=== PATIENT | female | born 1965 | race Caucasian/White ===

== ENCOUNTER 2017-09-09 11:19 | Emergency (ER) | payer SELFPAY ==
[2017-09-09 11:30] VITALS: BP 150/80
[2017-09-09] MEDS ORDERED: Ketorolac 60 MG/2 ML SDV IM ONE (12:01)
--- NOTE | 2017-09-09 12:14 | EDM.PDOC ---
ED HPI GENERAL MEDICAL PROBLEM - General Chief Complaint: Headache Stated Complaint: HEAD PAIN Time Seen by Provider: 09/09/17 11:58 Source of Information: Reports: Patient History Limitations: Reports: No Limitations - History of Present Illness INITIAL COMMENTS - FREE TEXT/NARRATIVE: 52-year-old female presents for evaluation and treatment of a headache. Reports she has been experiencing discomfort to her neck and head since Thursday. Came on gradually. She describes a sharp to shooting sensation in the occipital region of her head. She states that she's had this once in a while and she normally goes to a chiropractor and it resolves. 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 Reports that her headache was nearly resolved after using at home therapies but after going to the chiropractor this worsened her headache again. She denies any associated symptoms. No nausea, vomiting, dizziness, numbness, tingling, vision changes, neck pain, back pain or any weakness in her arms. Patient tried over-the- counter Tylenol, Motrin, Biofreeze and ice without any relief. No primary care provider. Occipital Headache Pain Score (Numeric/FACES): 6 - Related Data Allergies Allergy/AdvReac Type Severity Reaction Status Date / Time No Known Allergies Allergy Verified 09/09/17 11:30 Home Meds: Home Meds Naproxen 500 mg PO BID PRN #20 tablet 09/09/17 [Rx] Orphenadrine [Norflex] 100 mg PO BID PRN #20 tab.er 09/09/17 [Rx] Past Medical History - Past Surgical History HEENT Surgical History: Reports: Tonsillectomy Female Surgical History: Reports: Hysterectomy Social & Family History - Tobacco Use Smoking Status *Q: Former Smoker Used Tobacco, but Quit: Yes Month/Year Tobacco Last Used: 2015 - Caffeine Use Caffeine Use: Reports: Coffee - Recreational Drug Use Recreational Drug Use: No ED ROS GENERAL - Review of Systems Review Of Systems: See Below Constitutional: Denies: Weakness HEENT: Denies: Vision Change GI/Abdominal: Denies: Melena, Nausea Musculoskeletal: Denies: Neck Pain, Back Pain Neurological: Reports: Headache. Denies: Numbness, Tingling - Physical Exam Exam: See Below Exam Limited By: No Limitations General Appearance: Alert, WD/WN, No Apparent Distress Eye Exam: Bilateral Eye: Normal Inspection, PERRL Throat/Mouth: Normal Inspection, Normal Voice, No Airway Compromise Neck: Normal Inspection, Tender Lateral (left base of skull, occipital region to C2) Respiratory/Chest: No Respiratory Distress, Lungs Clear, Normal Breath Sounds Cardiovascular: Normal Peripheral Pulses, Regular Rate, Rhythm, No Murmur Neuro Exam (Abbreviated): Alert, Oriented, Normal Cognition, Normal Gait Back Exam: Normal Inspection. 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 No ischmeic changes. No LVH. No LAD. No IVCDs. QTc within normal limits. No significant change from June, EKG. Reviewed by myself and Dr. Huber. Course - Vital Signs Last Recorded V/S: Last Vital Signs Temp 97.9 F 09/09/17 11:25 Pulse 89 09/09/17 11:25 Resp 19 09/09/17 11:25 BP 150/80 H 09/09/17 11:25 Pulse Ox 98 09/09/17 11:25 - Orders/Labs/Meds Meds: Medications Discontinued Medications Generic Name Dose Route Start Last Admin Trade Name Freq PRN Reason Stop Dose Admin Ketorolac Tromethamine 60 mg 09/09/17 12:01 09/09/17 12:08 Toradol IM 09/09/17 12:02 60 mg ONETIME ONE Administration - Re-Assessments/Exams Free Text/Narrative Re-Assessment/Exam: 09/09/17 12:03 I believe the source of her headache is muscluskeletal in nature. Will start on norflex and naproxen. Follow-up if not much better. Discharge instructions as documented. Departure - Departure Time of Disposition: 12:09 Disposition: Home, Self-Care 01 Condition: Fair Clinical Impression: Tension headache - Discharge Information Prescriptions: Naproxen 500 mg PO BID PRN #20 tablet PRN Reason: Pain Orphenadrine [Norflex] 100 mg PO BID PRN #20 tab.er PRN Reason: Muscle Spasm Instructions: Tension Headache, Adult, [id number] Referrals: PCP,None [Primary Care Provider] - Katie White MD [Physician] - Forms: ED Department Discharge Additional Instructions: Take Norflex 1 tab twice a day as needed for muscle pain and spasms. This medication may make you drowsy. Do not drive or operate machinery until you know how this medication will affect you. take the naprosen 1 tab twice a day as needed for pain. You may take over-the- counter Tylenol as needed for additional pain relief. Recommend using moist heat to the sore area. May also use a topical products such as Icyhot or BenGay. Follow-up with family medicine if your symptoms do not improve within [address] White at the [facility]. Call [phone] to schedule with her. Please return to the ER if your symptoms change or worsen.
== END 2017-09-09 12:20 | disposition home or self-care (01) ==
LOC: JD.ED 11:19
DX: G44.209 Tension-type headache, unspecified, not intractable (principal); Z87.891 Personal history of nicotine dependence
CPT/HCPCS: 96372; 99283; J1885